=== PATIENT | male | born 1995 | race Caucasian/White ===

== ENCOUNTER 2018-01-02 23:07 | Emergency (ER) | payer MEDICAID ==
[~2018-01-02] VITALS: Ht 175.3 cm; Wt 74.8 kg
--- NOTE | 2018-01-02 23:15 | NUR ---
to bed 9 bib paramedics c/o syncope after smoking marijuana, L eyebrow laceration. pt aaox4 no acute distress noted, resp even and unlabored. 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 pending er md tejeda.
[2018-01-03] MEDS ORDERED: TDAP [DIPH/PERTUSSIS/TET] 0.5 ML VIAL IM ONE ×2 (00:25)
--- NOTE | 2018-01-03 01:01 | NUR ---
IV removed. Catheter intact and site benign. Pressure and 4x4 applied to site. No bleeding noted.Patient discharged to home in stable condition. Written and verbal after care instructions given. Patient verbalizes understanding of instruction. ambulatory with a steady gait. pt family member at bedside o take pt home.
[2018-01-03 01:06] VITALS: BP 124/65
== END 2018-01-03 01:06 | disposition home or self-care (01) ==
LOC: ER 23:10
DX: S01.112A Laceration without foreign body of left eyelid and periocular area, initial encounter (principal); R55 Syncope and collapse; J45.909 Unspecified asthma, uncomplicated; F12.10 Cannabis abuse, uncomplicated; W18.39XA Other fall on same level, initial encounter; Y93.89 Activity, other specified; Y92.89 Other specified places as the place of occurrence of the external cause; Y99.8 Other external cause status
CPT/HCPCS: 12013; 70450; 90471; 90715; 93005; 99284; 99406; A4606; A6402 ×2; Z7610

== ENCOUNTER 2018-01-10 06:41 | Emergency (ER) | payer MEDICAID ==
[~2018-01-10] VITALS: Ht 172.7 cm; Wt 59.0 kg
[2018-01-10 06:44] VITALS: BP 128/86
--- NOTE | 2018-01-10 06:55 | NUR ---
AT BEDSIDE FOR SUTURE REMOVAL.
== END 2018-01-10 07:07 | disposition home or self-care (01) ==
LOC: ER 06:43
DX: S01.112D Laceration without foreign body of left eyelid and periocular area, subsequent encounter (principal); J45.909 Unspecified asthma, uncomplicated
CPT/HCPCS: 99281; A4606; Z7610; Z7502